=== PATIENT | female | born 1970 | race Hispanic/Latino ===

== ENCOUNTER 2017-09-16 15:18 | Inpatient (IN) | payer MEDICAID, OTHER ==
[~2017-09-16] VITALS: Ht 152.4 cm; Wt 120.7 kg
[2017-09-16 15:52] LABS: BASOPHILS % (AUTO) 0.3 % (0.0-5.0); EOSINOPHILS % (AUTO) 0.3 % (0.0-8.0); HEMATOCRIT 34.9 % (36-48); LYMPHOCYTES % (AUTO) 19.5 % (21.0-51.0); MEAN CORPUSCULAR HGB CONC 34.6 g/dL (32.0-36.0); MONOCYTES % (AUTO) 5.3 % (3.0-13.0); NEUTROPHILS % (AUTO) 74.6 % (40.0-77.0); PLATELET COUNT (AUTO) 333 K/uL (130-400); RED BLOOD CELL COUNT(AUTO) 4.48 MIL/uL (4.00-5.50); RED CELL DISTRIBUTION WIDTH 14.8 % (11.0-15.5); WHITE BLOOD COUNT (AUTO) 9.7 K/uL (4.8-10.8)
[2017-09-16 16:04] LABS: CREATININE 0.7 mg/dL (0.5-1.5); POTASSIUM 3.7 mmol/L (3.5-5.1)
[2017-09-16 16:08] LABS: ALBUMIN 3.3 g/dL (3.5-5.0); BILIRUBIN,TOTAL 0.2 mg/dL (0.2-1.0); TOTAL PROTEIN, SERUM 8.1 g/dL (6.0-8.3)
[2017-09-16] MEDS ORDERED: MORPHINE SULFATE 4 MG/1ML SYG ONE ×2 (16:28→19:05)
[2017-09-16] MEDS ORDERED: SODIUM CHLORIDE 0.9% 1000ML 1,000 ML IV ONE (16:28)
[2017-09-16] MEDS ORDERED: ONDANSETRON HCL MDV 20ML 2 MG/ML VIAL ONE (16:28)
[2017-09-16] MEDS ORDERED: IOPAMIDOL-370 75 ML VIAL IV ONE (17:00)
[2017-09-16 17:04] LABS: APPEARANCE,URINE Clear (CLEAR); BILIRUBIN,URINE Negative (NEGATIVE); COLOR,URINE Yellow (YELLOW); GLUCOSE, URINE (UA) 500 mg/dL (NEGATIVE); KETONES,URINE Negative (NEGATIVE); LEUKOCYTE ESTERASE ,URINE Negative (NEGATIVE); NITRATE,URINE Negative (NEGATIVE); OCCULT BLOOD,URINE Negative (NEGATIVE); PROTEIN,URINE Negative (NEGATIVE); UROBILINOGEN,URINE 0.2 mg/dL (0.2-1.0)
[2017-09-16 17:15] LABS: BACTERIA,URINE Rare /HPF (None Seen); RBC,URINE 0-1 /HPF (0-1); SQUAMOUS EPITHELIAL CELL,UR Rare /HPF (0-2); WBC,URINE 0-1 /HPF (0-1)
[2017-09-16] MEDS ORDERED: INSULIN HUMULIN R 100 UNIT/ML 3ML ONE (21:11)
[2017-09-16 23:52] VITALS: BP 117/68
[2017-09-17] VITALS (29 sets, daily range): BP systolic 122–149; BP diastolic 62–80
[2017-09-17] MEDS ORDERED: PROMETHAZINE HCL 25 MG/ML 1ML AMPULE IM PRN ×2 (00:15→12:45)
[2017-09-17] MEDS ORDERED: MEPERIDINE-PF 75 MG/ML SYG IM PRN (00:15)
[2017-09-17] MEDS: LACTATED RINGERS 1000ML 1,000 ML IV SCH ×3 (01:08→16:30)
[2017-09-17] MEDS ORDERED: GLIP5TAB11 PO (05:08)
[2017-09-17] MEDS ORDERED: METF10004 PO (05:08)
[2017-09-17] MEDS ORDERED: SITA50TA PO (05:08)
[2017-09-17] MEDS ORDERED: GLIP2.5T2 PO (07:58)
[2017-09-17] MEDS ORDERED: CALDOLOR 800MG+NS 250ML 250 ML IV ONE (09:23)
[2017-09-17] MEDS: CEFAZOLIN SODIUM 1 GM VIAL ONE ×2 (09:31→11:40)
[2017-09-17] MEDS ORDERED: GLYCOPYRROLATE 0.2 MG/ML 5 ML VIAL ONE (11:31)
[2017-09-17] MEDS ORDERED: DEXAMETHASONE SOD PHOSPHATE 10MG/ML 1ML VIAL ONE (11:31)
[2017-09-17] MEDS ORDERED: ONDANSETRON HCL 4 MG/2 ML VIAL ONE (11:31)
[2017-09-17] MEDS ORDERED: FENTANYL CITRATE PF 50 MCG/1 ML 2ML VIAL ONE (11:32)
[2017-09-17] MEDS ORDERED: NEOSTIGMINE 5MG/5ML SYR IV ONE (11:32)
[2017-09-17] MEDS ORDERED: PROPOFOL 10 MG/ML 20ML VIAL IV ONE (11:32)
[2017-09-17] MEDS ORDERED: LIDOCAINE PF 2% 5ML ABBOJECT ONE (11:32)
[2017-09-17] MEDS ORDERED: SUCCINYLCHOLINE 200MG/10ML SYR ONE (11:32)
[2017-09-17] MEDS ORDERED: MIDAZOLAM HCL 1 MG/ML 2ML VIAL ONE (11:32)
[2017-09-17] MEDS ORDERED: MEPERIDINE 10MG/ML 50ML PCA 50 ML IV PRN (12:45)
[2017-09-17] MEDS ORDERED: NALOXONE HCL 0.4 MG/1 ML ML IVP PRN (12:45)
[2017-09-17] MEDS ORDERED: DiphenhydrAMINE HCL 50 MG/ML VIAL IV PRN (12:45)
[2017-09-17] MEDS ORDERED: ONDANSETRON HCL 4 MG/2 ML VIAL IV PRN (12:45)
[2017-09-17] MEDS ORDERED: BISACODYL 10 MG SUPP.RECT RC PRN (12:45)
[2017-09-17] MEDS ORDERED: SIMETHICONE 80 MG TAB.CHEW PO PRN (12:45)
[2017-09-17] MEDS ORDERED: MEPERIDINE-PF 25 MG/ML SYG ONE ×2 (12:53→13:03)
[2017-09-17] MEDS ORDERED: MEPERIDINE 10MG/ML 50ML PCA 50 ML IV ONE (13:19)
[2017-09-17] MEDS: SODIUM CHLORIDE 0.9% 1000ML 1,000 ML IV SCH (14:34)
[2017-09-17] MEDS: INSULIN HUMULIN R 100 UNIT/ML 3ML SQ SCH ×2 (16:35→22:06)
[2017-09-17] MEDS ORDERED: ONDANSETRON HCL MDV 20ML 2 MG/ML VIAL IV PRN (20:28)
[2017-09-17] MEDS: CEFAZOLIN 3GM /D5W 100ML 100 ML IV SCH (20:52)
[2017-09-17] MEDS: CALDOLOR 800MG+NS 250ML 250 ML IVPB SCH (20:56)
[2017-09-18] VITALS (7 sets, daily range): BP systolic 94–143; BP diastolic 53–83
[2017-09-18] MEDS: SODIUM CHLORIDE 0.9% 1000ML 1,000 ML IV SCH (01:27)
[2017-09-18] MEDS: CEFAZOLIN 3GM /D5W 100ML 100 ML IV SCH (04:40)
[2017-09-18] MEDS: CALDOLOR 800MG+NS 250ML 250 ML IVPB SCH (05:09)
[2017-09-18 06:57] LABS: HEMATOCRIT 32.9 % (36-48); MEAN CORPUSCULAR HEMOGLOBIN 25.4 pg (27.0-33.0); MEAN CORPUSCULAR HGB CONC 32.4 g/dL (32.0-36.0); MEAN CORPUSCULAR VOLUME 78.6 fL (79-99); PLATELET COUNT (AUTO) 305 K/uL (130-400); RED BLOOD CELL COUNT(AUTO) 4.19 MIL/uL (4.00-5.50); RED CELL DISTRIBUTION WIDTH 15.2 % (11.0-15.5); WHITE BLOOD COUNT (AUTO) 11.5 K/uL (4.8-10.8)
[2017-09-18] MEDS: INSULIN HUMULIN R 100 UNIT/ML 3ML SQ SCH ×4 (07:30→21:45)
[2017-09-18] MEDS: GLIPIZIDE XL 2.5MG TAB PO SCH (08:00)
[2017-09-18] MEDS: METFORMIN HCL 500 MG TABLET PO SCH ×2 (08:00→17:00)
[2017-09-18] MEDS: LINAGLIPTIN 5 MG TABLET PO SCH (09:00)
[2017-09-18] MEDS: DOCUSATE SODIUM 100 MG CAP PO PRN ×2 (09:01→20:44)
[2017-09-18] MEDS: IBUPROFEN 800 MG TAB PO SCH ×2 (12:10→21:35)
[2017-09-18] MEDS: SIMETHICONE 80 MG TAB.CHEW PO PRN ×2 (17:48→20:44)
[2017-09-18] MEDS: ACETAMINOPHEN-CODEINE 300/30MG TAB PO PRN (17:50)
[2017-09-19 03:15] VITALS: BP 114/52
[2017-09-19] MEDS: ACETAMINOPHEN-CODEINE 300/30MG TAB PO PRN (05:02)
[2017-09-19] MEDS: IBUPROFEN 800 MG TAB PO SCH ×2 (05:59→12:45)
[2017-09-19 07:21] VITALS: BP 119/64
[2017-09-19] MEDS: GLIPIZIDE XL 2.5MG TAB PO SCH (08:12)
[2017-09-19] MEDS: LINAGLIPTIN 5 MG TABLET PO SCH (08:12)
[2017-09-19] MEDS: SIMETHICONE 80 MG TAB.CHEW PO PRN ×2 (08:13→12:44)
[2017-09-19] MEDS: DOCUSATE SODIUM 100 MG CAP PO PRN (08:13)
[2017-09-19] MEDS: METFORMIN HCL 500 MG TABLET PO SCH (08:13)
[2017-09-19 11:13] VITALS: BP 127/78
== END 2017-09-19 13:25 | disposition home or self-care (01) | DRG 742 ==
LOC: EDH 15:18 → OBSVTOIN 15:19 → WSH 15:19
PROC: 0UT60ZZ Resection of Left Fallopian Tube, Open Approach (ICD-10-PCS; principal; 2017-09-17 10:28)
PROC: 0UT10ZZ Resection of Left Ovary, Open Approach (ICD-10-PCS; 2017-09-17 10:28)
DX: N83.9 Noninflammatory disorder of ovary, fallopian tube and broad ligament, unspecified (principal); Z68.43 Body mass index [BMI] 50.0-59.9, adult; E66.01 Morbid (severe) obesity due to excess calories; I10 Essential (primary) hypertension; E78.5 Hyperlipidemia, unspecified
CPT/HCPCS: 36415; 74177; 80053; 81001; 81025; 82550; 82948; 83690; 84484; 85025; 85027; 88104; 88305; 88307; 93005; 96365; A4218; A4344; J0330; J0690; J1100; J1741; J1815; J2001; J2175; J2250; J2270; J2405; J2550; J2704; J2710; J3010; J3490; J7030; J7120; Q9967

== ENCOUNTER → 2024-12-27 | Outpatient (CLI) | payer MEDICAID ==
[~2024-12-27] MED LIST: GLIP2.5T23 PO; METF-446 PO; SITA50TA PO
--- NOTE | 2025-01-02 11:15 | HMCIMG ---
BILATERAL BREAST ULTRASOUND: Clinical history rule out mass Findings: Real-time examination of the both breasts demonstrates homogeneous echotexture throughout both the breasts without evidence of focal solid or cystic masses. At 9:00 of the right breast there is a intramammary lymph node with fatty hilum measuring 0.9 x 0.5 x 0.7 cm. There is benign axillary lymph nodes seen bilaterally on the right measures 2.3 x 0.9 x 1.6 cm. On the left side there is a axillary lymph node measuring 1.5 x 0.6 x 1.2 cm. There is a second lymph node in the left axillary region measuring 1.9 x 0.5 x 1.4 cm. IMPRESSION: No solid mass seen. There is intramammary lymph node seen in the right breast at 9:00 I would recommend annual mammography with tomography with bilateral breast sonogram CATEGORY 2: BENIGN FINDINGS Recommend monthly self breast exam as well as annual clinical examination. A negative x-ray should not delay biopsy if a dominant or clinically suspicious mass is present, since 8-10% of cancers are not identified by mammography. Dense breasts particularly, may obscure an underlying neoplasm. Some of these may be detected clinically and therefore, clinical examination is an essential part of breast evaluation.
--- NOTE | 2025-01-02 11:18 | HMCIMG ---
DIGITAL lateral DIAGNOSTIC MAMMOGRAM Technique: The digital mammographic examination of both breasts in craniocaudal, mediolateral oblique views along with CAD was obtained. The lateral breast sonogram was also obtained. History: This is a 54 years year-old female 10, para6 Ab4 . Patient has no family history of breast cancer. Patient has no complaint Reference:Prior mammogram from 05/20/2024 of right breast is available.. Breast composition: Breast composition A: The breasts are almost entirely fatty. Finding: The digital mammographic examination of both breasts in craniocaudal and mediolateral oblique view along with CAD demonstrates to have involutional fatty changes. The right breast there is a small density which ultrasound appears to be an also the contour mammogram to suggest a intramammary lymph node with fatty hilum.. There is no evidence of any dendritic mass, cluster microcalcification or architectural distortion. The retromammary fat appears to be normal. IMPRESSION: NO RADIOGRAPHIC EVIDENCE OF MALIGNANT CHANGES. WE WOULD RECOMMEND ANNUAL FOLLOW UP WITH TOMOSYNTHESIS UNLESS OTHERWISE CLINICALLY INDICATED. I would recommend annual bilateral breast sonogram. FINAL ASSESSMENT: ACR: BI-RAD- 2. Benign: Also a negative assessment; finding(s) benign abnormalities. Management: Routine mammography screening. Likelihood of Cancer: Essentially 0% likelihood of malignancy. NOTE: IF A WORK-UP OF THIS PATIENT LEADS TO A BIOPSY, PLEASE FORWARD A COPY OF THE PATHOLOGY REPORT TO OUR OFFICE REQUIRED BY [facility] E[employer]ECT[facility] FEBRUARY 22, 1994. A NEGATIVE MAMMOGRAM SHOULD NOT PRECLUDE BIOPSY OF A CLINICALLY PALPABLE SUSPICIOUS MASS, 10% OF BREAST CANCERS ARE MAMMOGRAPHICALLY OCCULT. THIS MAMMOGRAPHY FACILITY IS FULLY ACCREDITED BY THE [employer]OD AND [employer]UG [employer]ATION (FDA). THANK YOU FOR THIS REFERRAL.
== END | disposition home or self-care (01) ==
LOC: RAH 13:38
PROVIDERS: ATTEND Nurse Practitioner Family
DX: N64.89 Other specified disorders of breast (principal); R59.0 Localized enlarged lymph nodes
CPT/HCPCS: 77066